=== PATIENT | male | born 1935 | race Caucasian/White ===

== ENCOUNTER → 2016-06-10 | Outpatient (CLI) | payer MEDICARE, OTHER | END | disposition home or self-care (01) | LOC: CFH 07:29 | PROVIDERS: ATTEND Nurse Practitioner Primary Care | DX: M51.34 Other intervertebral disc degeneration, thoracic region (principal); M51.24 Other intervertebral disc displacement, thoracic region; M51.44 Schmorl's nodes, thoracic region; G96.19 Other disorders of meninges, not elsewhere classified; M25.78 Osteophyte, vertebrae; D18.09 Hemangioma of other sites | CPT/HCPCS: 72146 ==